=== PATIENT | male | born 1980 | race Two or more races ===

== ENCOUNTER 2024-10-22 10:56 | Emergency (ER) | payer OTHER ==
[~2024-10-22] VITALS: Ht 170.2 cm; Wt 95.3 kg
[2024-10-22 11:48] VITALS: BP 122/80; O2SAT 98
[2024-10-22 13:25] LABS: BASO % 0.2 % (0.1-1.2); EOS # 0.04 (0.04-0.54); EOS % 0.9 % (0.7-7.0); HEMATOCRIT 46.1 % (40.1-51.0); HEMOGLOBIN 15.4 g/dL (13.7-17.5); LYMPH # 0.71 (1.18-3.74); MEAN CORPUSCULAR HEMOGLOBIN 27.7 pg (25.6-32.2); MONO # 0.44 (0.24-0.82); MONO % 9.9 % (4.7-12.5); NEUT # 3.22 (1.56-6.13); NEUT % 72.8 % (34.0-71.1); PLATELET COUNT 142 K/uL (163-369); RED BLOOD COUNT 5.56 M/uL (4.63-6.08); RED CELL DISTRIBUTION WIDTH 12.5 % (11.6-14.4)
[2024-10-22 13:52] LABS: INFLUENZA A AG NEGATIVE (NEGATIVE)
[2024-10-22 14:36] LABS: COVID-19 AG NEGATIVE (NEGATIVE)
== END 2024-10-22 15:01 | disposition home or self-care (01) ==
LOC: ER 11:41
PROVIDERS: General Practice
DX: B34.9 Viral infection, unspecified (principal); Z20.822 Contact with and (suspected) exposure to COVID-19